=== PATIENT | male | born 1955 ===

== ENCOUNTER 2017-10-17 06:33 | Inpatient (IN) | payer OTHER ==
[~2017-10-17] VITALS: Ht 147.3 cm; Wt 72.6 kg
== END 2017-10-19 03:15 | disposition expired | DRG 311 ==
LOC: ER 06:33 → ICU-2 18:13 → MEDI 18:13 → ICU 18:13 → ICU-2 21:00 → ICU 10-18 21:39
PROC: 4A033R1 Measurement of Arterial Saturation, Peripheral, Percutaneous Approach (ICD-10-PCS; 2017-10-17)
PROC: B246ZZZ Ultrasonography of Right and Left Heart (ICD-10-PCS; 2017-10-17)
PROC: 5A1945Z Respiratory Ventilation, 24-96 Consecutive Hours (ICD-10-PCS; principal; 2017-10-18)
PROC: 0BH17EZ Insertion of Endotracheal Airway into Trachea, Via Natural or Artificial Opening (ICD-10-PCS; 2017-10-18)
PROC: 3E0F7GC Introduction of Other Therapeutic Substance into Respiratory Tract, Via Natural or Artificial Opening (ICD-10-PCS; 2017-10-18)
PROC: B54DZZZ Ultrasonography of Bilateral Lower Extremity Veins (ICD-10-PCS; 2017-10-18)
DX: I24.9 Acute ischemic heart disease, unspecified (principal); J96.02 Acute respiratory failure with hypercapnia; R65.11 Systemic inflammatory response syndrome (SIRS) of non-infectious origin with acute organ dysfunction; N17.8 Other acute kidney failure; E87.2 Acidosis; I10 Essential (primary) hypertension; I95.89 Other hypotension; I46.2 Cardiac arrest due to underlying cardiac condition